=== PATIENT | male | born 1970 | race Caucasian/White ===

== ENCOUNTER 2021-07-01 13:19 | Emergency (ER) | payer OTHER, MEDICARE ==
[2021-07-01 14:40] LABS: BILIRUBIN NEGATIVE (NEGATIVE); BLOOD NEGATIVE Ery/uL (NEGATIVE); CLARITY CLEAR (CLEAR); COLOR YELLOW (YELLOW); GLUCOSE (U) NORMAL (NORMAL); LEUKOCYTES NEGATIVE Leu/uL (NEGATIVE); NITRITE NEGATIVE (NEGATIVE); PROTEIN NEGATIVE (NEGATIVE); SPECIFIC GRAVITY 1.025 (1.001-1.030); UROBILINOGEN 0.2 mg/dL (0.2-1.0)
[2021-07-01] MEDS ORDERED: NAPROXEN500 MG PO (15:11)
[2021-07-01] MEDS ORDERED: BACLOFEN 10MG T10 MG PO (15:11)
[2021-07-01] MEDS ORDERED: PREDNISONE 20MG20 MG PO (15:11)
== END 2021-07-01 15:18 | disposition home or self-care (01) ==
LOC: FER 13:19
PROVIDERS: Nurse Practitioner Family
DX: M51.36 Other intervertebral disc degeneration, lumbar region (principal)
CPT/HCPCS: 72110; 81003; 96372; J1100; J1885